=== PATIENT | male | born 1995 ===

== ENCOUNTER 2018-09-16 13:22 | Emergency (ER) | payer SELFPAY ==
[~2018-09-16] VITALS: Wt 100.0 kg
--- NOTE | 2018-09-16 13:52 | ERD ---
ER Documentation Chief Complaint Chief Complaint AFTER SMOKING WHAT HE THOUGHT WAS MARIJUANA, PT IS ANXIOUS. RESTLESS HPI The patient is a 22-year-old male, presenting to the ER because he drank 3 cups of coffee and smoke marijuana around 12:45 PM, he then felt very anxious and palpitation. He then called 911 to bring him to the hospital. He denies auditory/visual hallucination, homicidal/suicidal ideation, headache, neck pain, chest pain, dyspnea, abdominal pain, vomiting. He does not smoke, drinks socially Past medical history: Anxiety Surgical history: None ROS All systems reviewed and are negative except as per history of present illness. Physical Exam Vitals Vital Signs Date Temp Pulse Resp B/P (MAP) Pulse Ox O2 O2 Flow FiO2 Time Delivery Rate 09/16/18 98.0 102 20 135/88 98 Room Air 15:11 (104) 09/16/18 98.8 138 20 156/78 98 13:26 (104) Physical Exam Const: No acute distress. Head: Atraumatic. Eyes: Normal Conjunctiva. ENT: Normal External Ears, Nose and Mouth. Neck: Full range of motion. No meningismus. Resp: Clear to auscultation bilaterally. Cardio: Regular tachycardic. Abd: Soft, non distended, normal bowel sounds, non tender. Skin: No petechiae or rashes. Back: No midline or flank tenderness. Ext: No cyanosis, or edema. Neur: Awake and alert. No focal deficit Psych: Very anxious Results 24 hrs Current Medications Medications Dose Sig/Arley Start Time Status Last (Trade) Ordered Route PRN Stop Time Admin Dose Reason Admin Lorazepam 1 mg ONCE ONCE 09/16/18 DC 09/16/18 (Ativan) PO 14:30 14:28 09/16/18 14:31 Procedures/MDM MEDICAL MAKING DECISION: The patient is 22-year-old male, presenting to the ER because of acute anxiety due to increased caffeine and smoking marijuana. He was treated with Ativan 1 mg p.o. with good response, is stable for outpatient follow-up The differential diagnoses considered include but are not limited to anxiety attack, panic attack, marijuana toxicity, substance abuse Departure Diagnosis: Primary Impression: Drug abuse Condition: Good Comments The patient's blood pressure was elevated (>120/80) but appears stable without evidence of hypertension emergency or urgency. The patient was counseled about the risks of hypertension and urged to pursue outpatient monitoring and therapy within a week with their primary care physician. I discussed the findings with the patient. I advised the patient to follow-up with the primary physician in about 2-3 days, sooner if needed and return if any concern. Disclaimer: Inadvertent spelling and grammatical errors are likely due to EHR/dictation software use and do not reflect on the overall quality of patient care. Also, please note that the electronic time recorded on this note does not necessarily reflect the actual time of the patient encounter. JULIA SMILEY MD Sep 16, 2018 13:52
[2018-09-16] MEDS ORDERED: LORAZEPAM 1 MG TAB PO ONE (14:30)
[2018-09-16 15:11] VITALS: BP 135/88; PULSE 102; RESP 20
== END 2018-09-16 15:20 | disposition home or self-care (01) ==
LOC: E/R 13:22
DX: F12.10 Cannabis abuse, uncomplicated (principal)
CPT/HCPCS: 93005